=== PATIENT | female | born 2005 | race Caucasian/White ===

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

== ENCOUNTER 2025-03-04 20:53 | Emergency (ER) | payer OTHER ==
[~2025-03-04] VITALS: Ht 152.4 cm; Wt 81.7 kg
[2025-03-04 21:10] VITALS: BP 147/101
[2025-03-04] MEDS ORDERED: Amoxicillin/Clavulanate K 875 MG Tab PO ONE ×2 (21:20→23:40)
[2025-03-04] MEDS ORDERED: HYDROcodone 5-APAP 325 TAB PO ONE (23:40)
[2025-03-04] MEDS ORDERED: AMOCLA875 PO (23:41)
== END 2025-03-04 23:54 | disposition home or self-care (01) ==
LOC: ER 20:53
DX: K04.7 Periapical abscess without sinus (principal); E10.9 Type 1 diabetes mellitus without complications; Z79.4 Long term (current) use of insulin
CPT/HCPCS: 41800; 99282-25; A9270

== ENCOUNTER → 2025-09-15 | Outpatient (CLI) | payer OTHER ==
[~2025-09-15] MED LIST changes: +AMOCLA875 PO
[2025-09-16 01:01] LABS: Creatinine, Urine Random 92.0 mg/dL (27.00-270.00); Microalb/Creat Ratio UR, Rand 13.261 mg/g (0.000-30.000); Microalbumin, Random Urine 12.2 mg/L (0.000-20.000)
== END ==
LOC: LAB SHORT 11:45 → LAB 11:45
PROVIDERS: Internal Medicine Endocrinology, Diabetes & Metabolism
DX: E10.65 Type 1 diabetes mellitus with hyperglycemia (principal)
CPT/HCPCS: 82043; 82570